=== PATIENT | female | born 1970 | race Two or more races ===

== ENCOUNTER 2024-09-20 11:34 | Emergency (ER) | payer OTHER, MEDICAID ==
[~2024-09-20] VITALS: Ht 157.5 cm; Wt 83.9 kg
--- NOTE | 2024-09-20 12:21 | ED.PDOC ---
Eye-HPI HPI Comments 54 y.o male presents to the ED for a chief complaint of left sided eye swelling associated with pain and light sensitivity that started one day ago. Patient reports wearing contacts, had a set of them on for 2 days and took it off when symptoms presented but had no relief. Patient is unable to open eye and has clear eye discharge. Patient denies any fever or chills. 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 History: No Pertinent PHOTOLETTERING MACHINE OPERATOR History Family History Family History: Reviewed,noncontributory to illness Social History Smoker: Non-Smoker Alcohol: Denies ETOH Use Drugs: Denies Drug Use Lives In: Home Constitutional: denies: chills, diaphoresis, fatigue, fever, malaise, sweats, weakness, others EENTM: reports: eye pain, eye redness; denies: blurred vision, double vision, ear bleeding, ear discharge, ear drainage, ear pain, ear ringing, hearing loss, mouth pain, mouth swelling, nasal discharge, nose bleeding, nose congestion, nose pain, photophobia, tearing, throat pain, throat swelling, voice changes, others Respiratory: denies: cough, hemoptysis, orthopnea, SOB at rest, shortness of breath, SOB with excertion, stridor, wheezing, others Cardiovascular: denies: chest pain, dizzy spells, diaphoresis, Dyspnea on exertion, edema, irregular heart beat, left arm pain, lightheadedness, palpitations, PND, syncope, others Gastrointestinal: denies: abdomen distended, abdominal pain, blood streaked bowels, constipated, diarrhea, dysphagia, difficulty swallowing, hematemesis, melena, nausea, poor appetite, poor fluid intake, rectal bleeding, rectal pain, vomiting, others Genitourinary: denies: abnormal vagina bleeding, burning, dyspareunia, dysuria, flank pain, frequency, hematuria, incontinence, pain, , vagina discharge, urgency, others Neurological: denies: dizziness, fainting, headache, left sided numbness, left sided weakness, numbness, paresthesia, pre-existing deficit, right sided numbness, right sided weakness, seizure, speech problems, tingling, tremors, weakness, others Musculoskeletal: denies: back pain, gout, joint pain, joint swelling, muscle pain, muscle stiffness, neck pain, others Integumetry: denies: bruises, change in color, change in hair/nails, dryness, laceration, lesions, lumps, rash, wounds, others Allergic/Immunocompromised: denies: Difficulty Healing, Frequent Infections, Hives, Itching, others Hematologic/Lymphatic: denies: anemia, blood clots, easy bleeding, easy bruising, swollen glands, others Endocrine: denies: excessive hunger, excessive sweating, excessive thirst, excessive urination, flushing, intolerance to cold, intolerance to heat, unexplained weight gain, unexplained weight loss, others Psychiatric: denies: anxiety, bipolar disorder, depression, hopeless, panic disorder, schizophrenia, sleepless, suicidal, others All Other Systems: Reviewed and Negative Physical Exam General Appearance: No Apparent Distress, Normal HEENT: Other (conjunctiva injection, swelling to the left eye. ) Neck: Full Range of Motion, Non-Tender, Normal, Normal Inspection Respiratory: Chest Non-Tender, Lungs Clear, No Accessory Muscle Use, No Respiratory Distress, Normal Breath Sounds Cardiovascular: No Edema, No JVD, No Murmur, No Gallop, Normal Peripheral Pulses, Regular Rate/Rhythm Breast Exam: Deferred Gastrointestinal: No Organomegaly, Non Tender, No Pulsatile Mass, Normal Bowel Sounds, Soft Genitalia: Deferred Pelvic: Deferred Rectal: Deferred Extremities: No calf tenderness, Normal capillary refill, Normal inspection, Normal range of motion, Non-tender, No pedal edema Musculoskeletal : Apperance: Normal 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 Was a procedure done?: No EENT DIFF Eye: Conjunctivitis, Allergic, Bacterial, Viral, Corneal Abrasion, Corneal Lacerations, Corneal Ulceration, Foreign Body-Conjunctiva, Foreign Body-Corneal, Foreign Body-Intraocular, Iritis/Uveitis, Orbital Cellulits, Periorbital Cellulits X-Ray, Labs, Meds, VS Vital Signs Date Time Temp Pulse Resp B/P (MAP) Pulse Ox O2 Delivery O2 Flow Rate FiO2 09/20/24 11:54 98.2 60 16 140/86 (104) 98 Time of 1ST Reevaluation: 12:21 Reevaluation 1ST: Unchanged Consultation: Surgery Patient Education/Counseling: Diagnosis, Treatment Family Education/Counseling: No Family Present Additional Information Previous visit documents reviewed: None The following tests were ordered, and results were reviewed by me: None Additional Information was gathered from interviewing the following independent historians: None I reviewed and agreed with the following test results read by other providers: None I discussed treatment and results with medical personnel and: patient Departure 1 Departure Time of Disposition: 13:11 Impression: Primary Impression: Conjunctivitis Qualified Codes: H10.532 - Contact blepharoconjunctivitis, left eye Additional Impression: Cellulitis Qualified Codes: L03.211 - Cellulitis of face Disposition: 01 HOME / SELF CARE / HOMELESS Condition: Good e-Prescriptions Gentamicin Sulfate (Gentamicin Sulfate) 0.3 % Rae 2 DROP LEFTEYE QID, #5 ML Prov: ERIKA SHORT MD 09/20/24 Cephalexin Monohydrate (Cephalexin) 500 Mg Tab 1 TAB PO QID, #40 TAB Prov: ERIKA SHORT MD 09/20/24 Discharged With: Self Critical Care Note Critical Care Time?: No Stability Stability form required: No I personally scribed [facility] on 09/20/24 at 12:21. Electr onically submitted by China Rutherford ([facility]). ERIKA SHORT MD Sep 20, 2024 12:21
[2024-09-20] MEDS ORDERED: CEPH500T PO (13:13)
[2024-09-20] MEDS ORDERED: GENT0.3S10 LEFTEYE (13:13)
[2024-09-20 13:21] VITALS: BP 122/72; PULSE 58; RESP 16; TEMP 98; O2SAT 96
== END 2024-09-20 13:25 | disposition home or self-care (01) ==
LOC: ER 11:34
DX: H10.502 Unspecified blepharoconjunctivitis, left eye (principal); L03.211 Cellulitis of face